=== PATIENT | female | born 1945 | race Caucasian/White ===

== ENCOUNTER 2019-03-10 12:07 | Outpatient (CLI) | payer MEDICARE, OTHER ==
--- NOTE | 2019-03-10 13:30 | RAD ---
2 VIEWS CHEST: Date: 03/10/19 COMPARISON: 05/15/18. HISTORY: Dyspnea. FINDINGS: 2 views of the chest show a normal sized cardiomediastinal silhouette with atherosclerotic calcificat ions in the aorta. There is no evidence of consolidation, mass, or pleural effusion. Degenerative victoria nges are seen in the spine. IMPRESSION: 1. No evidence of acute cardiopulmonary disease. 2. Atherosclerotic disease. POS: TPC
== END 2019-03-10 12:08 | disposition home or self-care (01) ==
LOC: RAD 12:07
PROVIDERS: ATTEND Internal Medicine Critical Care Medicine
DX: R06.00 Dyspnea, unspecified (principal); I70.0 Atherosclerosis of aorta
CPT/HCPCS: 71046

== ENCOUNTER 2020-07-04 20:57 | Inpatient (IN) | payer MEDICARE ==
[2020-07-04] MEDS ORDERED: Morphine 4 MG/ML VIAL ONE ×2 (21:35→22:38)
[2020-07-04] MEDS ORDERED: Ondansetron PF 4 MG/2 ML Vial ONE (21:35)
[2020-07-05] MEDS ORDERED: Dextrose 50% Abboject 50 ML SYRINGE SLOW IVP PRN (01:47)
[2020-07-05] MEDS ORDERED: Sodium Chloride 0.9% 1,000 ML IV SCH (01:47)
[2020-07-05] MEDS ORDERED: traMADol HCl 50 MG TAB PO PRN (01:47)
[2020-07-05] MEDS ORDERED: hydrALAZINE 20 MG/ML VIAL SLOW IVP PRN (01:47)
[2020-07-05] MEDS ORDERED: Morphine 2 MG/ML VIAL SLOW IVP PRN (01:47)
[2020-07-05] MEDS ORDERED: Ondansetron ODT 4 MG TAB PO PRN (01:47)
[2020-07-05] MEDS ORDERED: Dextrose 5% in Water 1,000 ML IV PRN (01:47)
[2020-07-05] MEDS ORDERED: Ondansetron PF 4 MG/2 ML Vial IVP PRN (01:47)
[2020-07-05 01:57] VITALS: BMI 38.0
[2020-07-05] MEDS: Ibuprofen 200 MG TAB PO SCH ×3 (02:33→18:18)
[2020-07-05] MEDS: Acetaminophen 325 MG TAB PO SCH ×4 (02:34→19:39)
[2020-07-05 05:42] LABS: #Basophils 0.1 thou/uL (0.0-0.2); #Eosinphils 0.2 thou/uL (0.0-0.7); #Lymphocytes 2.6 thou/uL (1.20-3.40); #Monocytes 1.6 thou/uL (0.11-0.59); #Neutrophils 8.4 thou/uL (1.40-6.50); %Basophils 0.7 % (0.0-1.0); %Eosinophils 1.8 % (0.0-10.0); %Lymphocytes 20.4 % (21.0-51.0); %Monocytes 12.6 % (0.0-10.0); %Neutrophils 64.6 % (42.0-75.0); Hemoglobin 13.2 g/dL (12.0-16.0); Mean Corpuscular HGB CONC 32.2 g/dL (32.0-36.0); Mean Corpuscular Hemoglobin 30.5 pg (27.0-31.0); Mean Corpuscular Volume 94.9 fL (78.0-98.0); Mean Platelet Volume 7.2 fL (7.4-10.4); Platelet Count 176 thou/uL (130-400); RBC Distribution Width 12.3 % (11.5-14.5); Red Blood Cell (RBC) Count 4.32 mill/uL (4.20-5.40); White Blood Cell (WBC) Count 12.9 thou/uL (4.8-10.8)
[2020-07-05 06:15] LABS: Anion Gap 14 mmol/L (10-20); BUN (Urea Nitrogen) 16 mg/dL (9.8-20.1); Calc. Creatinine Clearance 115 mL/min (70-130); Calcium 8.7 mg/dL (7.8-10.44); Carbon Dioxide 21 mmol/L (23-31); Chloride 101 mmol/L (98-107); Glucose 138 mg/dL (83-110); Magnesium 1.6 mg/dL (1.6-2.6); Phosphorus 3.8 mg/dL (2.3-4.7); Potassium 4.1 mmol/L (3.5-5.1); Sodium 132 mmol/L (136-145)
[2020-07-05] MEDS: cloNIDine 0.2 MG TAB PO PRN (07:13)
--- NOTE | 2020-07-05 07:38 | RAD ---
Left shoulder 3 views HISTORY: Fall. Injury. FINDINGS: Comminuted fracture of the anatomic neck of the humerus with one half shaft width anterior displacement of the shaft in relation to the head. Oblique intra-articular extension to the superior aspect of the head of the base of the greater tuberosity with distraction of fragments by 0. 3 cm. Mild inferior subluxation likely related to hemarthrosis. Acromioclavicular alignment maintained. IMPRESSION : Comminuted mildly displaced left humeral head/neck fracture.
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
[2020-07-05] MEDS ORDERED: CEFAZOLIN 2 GM in Premix Bag 1 BAG IVPB SCH (08:30)
[2020-07-05] MEDS: Famotidine 20 MG TAB PO SCH ×2 (09:35→19:39)
[2020-07-05] MEDS: Carvedilol 25 MG TAB PO SCH ×2 (09:35→19:39)
[2020-07-05 09:41] LABS: SARS-CoV-2 NAA Rapid Test Not Detected (NotDetected)
[2020-07-05] MEDS ORDERED: Ondansetron PF 4 MG/2 ML Vial ONE ×2 (10:19→16:32)
[2020-07-05] MEDS ORDERED: Ketorolac Tromethamine 30 MG/ML VIAL ONE (10:19)
[2020-07-05] MEDS ORDERED: Dexamethasone 20 MG/5 ML VIAL ONE (10:19)
[2020-07-05] MEDS ORDERED: Rocuronium Bromide 10 MG/ML (10ML VIAL) ONE (10:19)
[2020-07-05] MEDS ORDERED: Lidocaine 1% PF 5 ML VIAL ONE (10:19)
[2020-07-05] MEDS ORDERED: Glycopyrrolate 0.2 MG/ML 5 ML SYRINGE ONE (10:19)
[2020-07-05] MEDS ORDERED: PHENYLEPHRINE-NS 100 MCG/ML 10 ML SYRINGE ONE (10:19)
[2020-07-05] MEDS ORDERED: PROPOFOL 200 MG/20 ML VIAL ONE (10:19)
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
[2020-07-05] MEDS ORDERED: Fentanyl 100 MCG/2 ML VIAL ONE ×2 (12:14→16:10)
[2020-07-05] MEDS ORDERED: Sodium Chloride 0.9% 0 ML ONE (12:38)
[2020-07-05] MEDS ORDERED: Sodium Chloride 0.9% 10 ML ONE (12:38)
[2020-07-05] MEDS ORDERED: Bupivacaine PF 0.5% 30 ML VIAL ONE (15:04)
[2020-07-05] MEDS ORDERED: Lidocaine 2% w/Epinephrine 1:200K 20 ML VIAL ONE (15:04)
--- NOTE | 2020-07-05 15:24 | RAD ---
Left humerus 2 views intraoperative fluoroscopy HISTORY: Fracture. FINDINGS: Intraoperative fluoroscopy was provided for internal fixation as performed by Dr. Blanchard . Spot fluoroscopic images show compression sideplate and multiple screws transfixing the left humeral neck fracture. Alignment is anatomic.
[2020-07-05] MEDS ORDERED: HYDROmorphone 2 MG/ML VIAL SLOW IVP PRN (15:49)
[2020-07-05] MEDS ORDERED: Promethazine HCl 25 MG/ML VIAL SLOW IVP PRN (15:49)
[2020-07-05] MEDS ORDERED: Ondansetron HCl/PF 4 MG/2 ML Vial IVP PRN (15:49)
[2020-07-05] MEDS ORDERED: PACU-Morphine 4MG/ML VIAL SLOW IVP PRN (15:49)
[2020-07-05] MEDS ORDERED: Promethazine HCl 25 MG/ML VIAL IM PRN (15:49)
[2020-07-05] MEDS ORDERED: Labetalol HCl 100 MG/20 ML VIAL ONE (15:55)
[2020-07-05] MEDS ORDERED: Labetalol HCl 100 MG/20 ML VIAL SLOW IVP PRN (15:55)
[2020-07-05] MEDS ORDERED: HumaLOG 300 UNITS/3 ML VIAL SC PRN ×2 (17:30)
[2020-07-05] MEDS ORDERED: Insulin Regular 300 UNITS/3 ML VIAL SC PRN ×2 (17:40)
[2020-07-05] MEDS ORDERED: INSULN SC SCH (18:45)
[2020-07-05] MEDS ORDERED: INSULIN ASPART 100 UNIT/ML SC SCH (18:45)
--- NOTE | 2020-07-05 19:05 | OP ---
DATE OF PROCEDURE: 07/05/2020 PROCEDURE PERFORMED: Open reduction and internal fixation of left proximal humerus fracture. PREOPERATIVE DIAGNOSIS: Displaced left proximal humerus fracture. POSTOPERATIVE DIAGNOSIS: Displaced left proximal humerus fracture. COMPLICATIONS: None. ESTIMATED BLOOD LOSS: 50 mL. VACUUM DRUM DRIER OPERATOR: Holden Otero PA-C IMPLANTS: Synthes proximal humeral plate with multiple locking and nonlocking screws. INDICATIONS: Ms. White is a 74-year-old female, who has fallen and fractured her left proximal humerus. She has been indicated for open reduction and internal fixation of the humerus to restore anatomic alignment and promote healing. Risks have been reviewed in detail. She has elected to proceed with the operation. DESCRIPTION OF PROCEDURE: Ms. White was identified in the preoperative holding area. Her correct extremity was marked. She was carried to the operating room. She was positioned supine. General anesthesia was induced. A multidisciplinary time-out was performed. The left upper extremity was prepped and draped in sterile fashion. We began the procedure with deltopectoral approach to the humerus. We dissected down through the subcutaneous tissues to the fascia, which was opened. We exposed the cephalic vein. We then developed the deltopectoral interval bluntly. At this point, we were down onto the underlying tissues. We exposed the underlying fracture. We identified the biceps tendon and performed a biceps tenodesis using a Vicryl suture. We opened the rotator interval and evaluated the humeral head as well as the lesser and greater tuberosity fractures. The greater tuberosity was posteriorly displaced. We placed multiple traction sutures using FiberWire. These were then all passed through a plate. We brought the plate down on the lateral part of the bone. We took x-ray images confirming our hardware, reduction plate placement. We were satisfied with alignment. We then placed multiple screws distally and proximally in the bone. Once we filled all screw holes, again we checked x-ray images confirming there were no hardware prominence. We tied all of our sutures further securing the tuberosities. These were tied through the plate holes. After thorough irrigation, we closed in layers. A sterile dressing was applied. The patient was taken to the recovery room in good condition. The assistant coach surgeon was responsible for positioning the patient, preparing the injured extremity, applying the tourniquet, and assisting in preparation for surgery. The assistant coach was instrumental in reducing the injured limb by applying traction and reduction maneuvers as well as holding retractors and reduction tools. The assistant coach also was instrumental in assisting in exposure throughout the operation using appropriate retractors. The assistant coach participated in closure of the operative site as well as dressing application and splint application. Job ID: [id number]
[2020-07-05] MEDS: Cyclobenzaprine 10 MG TAB PO PRN (19:39)
[2020-07-05] MEDS: CEFAZOLIN 2 GM in Premix Bag 1 BAG IVPB SCH (19:45)
[2020-07-05] MEDS ORDERED: LANTUS SC SCH (21:00)
[2020-07-06] MEDS: Acetaminophen 325 MG TAB PO SCH ×3 (02:52→13:29)
[2020-07-06] MEDS: Ibuprofen 200 MG TAB PO SCH ×3 (02:52→16:46)
[2020-07-06] MEDS: traMADol HCl 50 MG TAB PO PRN ×2 (02:53→12:11)
[2020-07-06] MEDS: CEFAZOLIN 2 GM in Premix Bag 1 BAG IVPB SCH (02:56)
[2020-07-06 05:30] LABS: #Lymphocytes 1.3 thou/uL (1.20-3.40); #Monocytes 1.5 thou/uL (0.11-0.59); #Neutrophils 13.7 thou/uL (1.40-6.50); %Lymphocytes 8.1 % (21.0-51.0); %Monocytes 9.2 % (0.0-10.0); %Neutrophils 82.7 % (42.0-75.0); Hemoglobin 12.6 g/dL (12.0-16.0); Mean Corpuscular HGB CONC 33.7 g/dL (32.0-36.0); Mean Corpuscular Hemoglobin 31.8 pg (27.0-31.0); Mean Corpuscular Volume 94.4 fL (78.0-98.0); Mean Platelet Volume 7.3 fL (7.4-10.4); Platelet Count 179 thou/uL (130-400); Red Blood Cell (RBC) Count 3.97 mill/uL (4.20-5.40); White Blood Cell (WBC) Count 16.5 thou/uL (4.8-10.8)
[2020-07-06 05:56] LABS: Anion Gap 14 mmol/L (10-20); BUN (Urea Nitrogen) 17 mg/dL (9.8-20.1); Calc. Creatinine Clearance 101 mL/min (70-130); Calcium 8.9 mg/dL (7.8-10.44); Carbon Dioxide 24 mmol/L (23-31); Chloride 101 mmol/L (98-107); Glucose 214 mg/dL (83-110); Magnesium 1.7 mg/dL (1.6-2.6); Phosphorus 2.9 mg/dL (2.3-4.7); Potassium 4.1 mmol/L (3.5-5.1); Sodium 135 mmol/L (136-145)
[2020-07-06] MEDS: cloNIDine 0.2 MG TAB PO PRN (06:00)
[2020-07-06] MEDS: Cyclobenzaprine 10 MG TAB PO PRN (06:01)
--- NOTE | 2020-07-06 08:35 | PRG ---
DATE OF SERVICE: 07/06/2020 SUBJECTIVE: Kamla is a 74-year-old female, postop day 1 from an open reduction internal fixation of left proximal humerus and humeral neck. She is doing relatively well. She is sleeping comfortably. She awakens easily. OBJECTIVE: VITAL SIGNS: Temperature 98.5, pulse 83, respiratory rate 16 and nonlabored, blood pressure is 188/70. GENERAL: She is alert and oriented to person, place, time, situation. Responsive, appropriate with examiner. EXTREMITIES: She is neurovascularly intact in the left upper extremity with good full digital excursion and sensation. No strikethrough is noted at the incision site. LABORATORY DATA: Hemoglobin and hematocrit 12.6 and 37.5. IMPRESSION: A 74-year-old female, postop day 1, left proximal humerus fracture status post open reduction internal fixation. PLAN: Continue current care. Disposition per Trauma Team. Continue to follow. Job ID: [id number]
[2020-07-06] MEDS ORDERED: Senokot S 8.6-50 MG TAB PO SCH (09:00)
[2020-07-06] MEDS ORDERED: Furosemide 40 MG TAB PO SCH (09:00)
[2020-07-06] MEDS ORDERED: Polyethylene Glycol 3350 17 GM Packet PO SCH (09:00)
[2020-07-06] MEDS ORDERED: Losartan 25 MG TAB PO SCH (09:00)
[2020-07-06] MEDS ORDERED: cloNIDine 0.2 MG TAB PO SCH (09:00)
--- NOTE | 2020-07-06 09:25 | EKG ---
Test Reason : PREOP Blood Pressure : / mmHG Vent. Rate : 069 BPM Atrial Rate : 069 BPM P-R Int : 174 ms QRS Dur : 092 ms QT Int : 426 ms P-R-T Axes : 071 006 062 degrees QTc Int : 456 ms Normal sinus rhythm Normal ECG No previous ECGs available Confirmed by JONATHAN CALI ([id number]) on 07/06/2020 9:25:31 AM Referred By: WALDEMAR Confirmed By:JONATHAN CALI
[2020-07-06] MEDS: INSULN SC SCH ×3 (09:35→16:46)
[2020-07-06] MEDS: INSULIN ASPART 100 UNIT/ML SC SCH ×3 (09:35→16:46)
[2020-07-06] MEDS: Famotidine 20 MG TAB PO SCH (09:36)
[2020-07-06] MEDS: Carvedilol 25 MG TAB PO SCH (09:36)
[2020-07-06 13:13] VITALS: BP 122/74; TEMP 98.2
[2020-07-07] MEDS ORDERED: Metoprolol Tartrate 50 MG TAB PO SCH (09:00)
[2020-07-07] MEDS ORDERED: Hydrochlorothiazide 25 MG TAB PO SCH (09:00)
--- NOTE | 2020-07-07 13:17 | PQF ---
CLINICAL DOCUMENTATION CLARIFICATION FORM: Dear SANJUANITA Paige Date: 07.07.20 Please exercise your independent, professional judgment in responding to the clarification form. Clinical indicators are provided on the bottom of this form for your review. Please check appropriate box(es): [ ] Hyponatremia [ X ] Insignificant Lab Value [ ] Other diagnosis [ ] Unable to determine For continuity of documentation, please document condition throughout progress notes and discharge summary. Thank You. To be completed by CDI/Coding staff for physician review: CLINICAL INDICATORS - SIGNS / SYMPTOMS / LABS / RESULTS AND LOCATION IN EMR Labs: Sodium 1.20 132 1.21 135 RISK FACTORS / RESULTS AND LOCATION IN EMR 1. H&P ([place]): *s/p ground level fall w/ delayed presentation *Left proximal humerus fracture *PMH: DM type 2; CAD; HTN; Thyroid disease *Current Medications: Lasix; Metoprolol/HCTZ; TREATMENTS / RESULTS AND LOCATION IN EMR MAR: .20 NS 1.000ml @100 mls/hr IV CDS Signature: Little Kirkpatrick RN, CCDS Phone #: [phone] [email or web address] This is a permanent part of the Medical Record [facility]
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
== END 2020-07-06 17:05 | disposition home or self-care (01) | DRG 494 ==
LOC: ERS 20:57 → SURG A 21:55 → OBSVTOIN 07-05 01:47
PROVIDERS: ADMIT Surgery; ATTEND Surgery
PROC: 0PSD04Z Reposition Left Humeral Head with Internal Fixation Device, Open Approach (ICD-10-PCS; principal; 2020-07-05)
DX: S42.202A Unspecified fracture of upper end of left humerus, initial encounter for closed fracture (principal); E11.9 Type 2 diabetes mellitus without complications; K21.9 Gastro-esophageal reflux disease without esophagitis; I10 Essential (primary) hypertension; E78.00 Pure hypercholesterolemia, unspecified; E03.9 Hypothyroidism, unspecified; W01.0XXA Fall on same level from slipping, tripping and stumbling without subsequent striking against object, initial encounter; S80.212A Abrasion, left knee, initial encounter; I25.10 Atherosclerotic heart disease of native coronary artery without angina pectoris; F41.9 Anxiety disorder, unspecified; Z20.822 Contact with and (suspected) exposure to COVID-19; Z95.4 Presence of other heart-valve replacement; Z98.890 Other specified postprocedural states; Z90.710 Acquired absence of both cervix and uterus; Z88.8 Allergy status to other drugs, medicaments and biological substances; Z79.51 Long term (current) use of inhaled steroids; Z79.899 Other long term (current) drug therapy; Z79.84 Long term (current) use of oral hypoglycemic drugs; Z79.82 Long term (current) use of aspirin
CPT/HCPCS: 36415; 36416; 76000; 80048; 83735; 84100; 85025; 93005; 93010; 96374; 96375; 96376; C1713; G0378; J0690; J1100; J1885; J2270; J2405; J2704; J3010; S0020; U0002

== ENCOUNTER 2021-04-26 11:30 | Inpatient (IN) | payer MEDICARE, OTHER ==
[2021-04-26 13:29] LABS: Hemoglobin 13.2 g/dL (12.0-15.5); Mean Corpuscular HGB CONC 32.3 g/dL (32.0-36.0); Mean Corpuscular Hemoglobin 30.8 pg (27.0-33.0); Mean Corpuscular Volume 95.3 fl (81.6-98.3); Mean Platelet Volume 9.6 fl (7.4-10.4); Platelet Count 232 10x3/uL (150-450); RBC Distribution Width 13.6 % (11.5-14.5); Red Blood Cell (RBC) Count 4.29 10x6/uL (3.90-5.03); White Blood Cell (WBC) Count 8.6 10x3/uL (3.5-10.5)
[2021-04-27 11:54] LABS: SARS-CoV-2 PCR by NAA Not Detected (NotDetected)
[2021-05-01] MEDS ORDERED: Albumin 5% 500 ML ONE (06:28)
[2021-05-01] MEDS ORDERED: ceFAZolin Sodium (SDC) 2 GM/100 ML BAG ONE (06:29)
[2021-05-01] MEDS ORDERED: Fentanyl 250 MCG/5 ML VIAL ONE (06:53)
[2021-05-01] MEDS ORDERED: Midazolam HCl 5 mg/5 ml Vial ONE (06:53)
[2021-05-01] MEDS ORDERED: Dexmedetomidine 200 MCG/2 ML VIAL ONE (06:53)
[2021-05-01] MEDS ORDERED: Midazolam HCl 2 mg/2 ml Vial ONE (07:08)
[2021-05-01] MEDS ORDERED: Heparin 10,000 UNITS/1 ML VIAL 30,000 UNITS in Sodium Chloride 0.9% 1,000 ML FS SCH (07:30)
[2021-05-01] MEDS ORDERED: Potassium Chloride 60 MEQ/30 ML VIAL ONE (07:50)
[2021-05-01] MEDS ORDERED: Sodium Bicarb 50 MEQ/50 ML Abboject 8.4% SYRINGE ONE (07:50)
[2021-05-01] MEDS ORDERED: Heparin 5,000 UNITS/ML VIAL ONE (07:50)
[2021-05-01] MEDS ORDERED: PROPOFOL 200 MG/20 ML VIAL ONE (07:50)
[2021-05-01] MEDS ORDERED: Ondansetron PF 4 MG/2 ML Vial ONE (07:50)
[2021-05-01] MEDS ORDERED: Nitroglycerin 50 MG/250 ML BOT ONE (07:50)
[2021-05-01] MEDS ORDERED: Papaverine 60 MG/2 ML VIAL ONE (07:50)
[2021-05-01] MEDS ORDERED: Glycopyrrolate 0.2 MG/ML 5 ML SYRINGE ONE (07:50)
[2021-05-01] MEDS ORDERED: Thrombin 5000 UNITS/5 ML VIAL ONE (07:50)
[2021-05-01] MEDS ORDERED: Cardioplegic Soln 1,000 ML BAG ONE (07:50)
[2021-05-01] MEDS ORDERED: Norepinephrine 4 MG/4 ML VIAL ONE (07:50)
[2021-05-01] MEDS ORDERED: Mannitol 12.5 GM/50 ML ONE (07:50)
[2021-05-01] MEDS ORDERED: Calcium Chloride 1 GM/10 ML Abboject SYRINGE ONE (07:50)
[2021-05-01] MEDS ORDERED: Magnesium Sulfate 1 GM/2 ML VIAL ONE (07:50)
[2021-05-01] MEDS ORDERED: Heparin 30,000 units/30 ml VIAL ONE (07:50)
[2021-05-01] MEDS ORDERED: Aminocaproic Acid 5 GM/20 ML VIAL ONE (07:50)
[2021-05-01] MEDS ORDERED: Lidocaine 1% PF 5 ML VIAL ONE (07:50)
[2021-05-01] MEDS ORDERED: Vecuronium 10 MG VIAL ONE (07:50)
[2021-05-01] MEDS ORDERED: Lidocaine 2% PF 100 mg/5 ml Syringe ONE (07:50)
[2021-05-01] MEDS ORDERED: Dexamethasone 20 MG/5 ML VIAL ONE (07:50)
[2021-05-01] MEDS ORDERED: Protamine Sulfate 50 MG/5 ML VIAL ONE (07:50)
[2021-05-01] MEDS ORDERED: PHENYLEPHRINE-NS 100 MCG/ML 10 ML SYRINGE ONE (07:50)
[2021-05-01] MEDS ORDERED: Insulin Regular 300 UNITS/3 ML VIAL ONE (08:12)
[2021-05-01] MEDS ORDERED: Guaifenesin DM 100-10/5 ML UDCUP PO PRN (10:53)
[2021-05-01] MEDS ORDERED: Hetastarch 6% 500 ML 500 ML IVPB PRN (10:53)
[2021-05-01] MEDS ORDERED: Morphine 2 MG/ML VIAL SLOW IVP PRN (10:53)
[2021-05-01] MEDS ORDERED: Nitroglycerin 50 MG/250 ML BOT 250 ML IVPB PRN (10:53)
[2021-05-01] MEDS ORDERED: DOPamine 400 MG/D5W 250 ML 250 ML IVPB PRN (10:53)
[2021-05-01] MEDS ORDERED: hydrALAZINE 20 MG/ML VIAL SLOW IVP PRN (10:53)
[2021-05-01] MEDS ORDERED: Bisacodyl 10 MG SUPP PR PRN (10:53)
[2021-05-01] MEDS ORDERED: Post-Op Insulin Drip Protocol IVPB ONE (10:53)
[2021-05-01] MEDS ORDERED: niCARdipine 25 MG in Sodium Chloride 0.9% 250 ML 250 ML IVPB PRN (10:53)
[2021-05-01] MEDS ORDERED: Bisacodyl 5 MG TAB PO PRN (10:53)
[2021-05-01] MEDS ORDERED: Promethazine HCl 25 MG/ML VIAL IM PRN (10:53)
[2021-05-01] MEDS ORDERED: Fentanyl 100 MCG/2 ML VIAL SLOW IVP PRN (10:53)
[2021-05-01] MEDS ORDERED: Norepinephrine 8 MG/0.9% NS 250 ML IVPB PRN (10:53)
[2021-05-01] MEDS ORDERED: Mag-Al 1200 mg/1200 mg/30 ML UDCUP PO PRN (10:53)
[2021-05-01] MEDS ORDERED: Ondansetron PF 4 MG/2 ML Vial IVP PRN (10:53)
[2021-05-01] MEDS ORDERED: Potassium Chloride 20 MEQ/100 ML PREMIX BAG IVPB PRN (10:53)
[2021-05-01 11:20] LABS: #Basophils 0.1 thou/uL (0.0-0.2); #Eosinphils 0.2 thou/uL (0.0-0.7); #Lymphocytes 2.4 thou/uL (1.20-3.40); #Monocytes 0.8 thou/uL (0.11-0.59); #Neutrophils 11.2 thou/uL (1.40-6.50); %Basophils 0.5 % (0.0-1.0); %Eosinophils 1.3 % (0.0-10.0); %Lymphocytes 16.3 % (21.0-51.0); %Monocytes 5.7 % (0.0-10.0); %Neutrophils 76.1 % (42.0-75.0); Hemoglobin 11.6 g/dL (12.0-16.0); Mean Corpuscular Hemoglobin 33.1 pg (27.0-31.0); Mean Corpuscular Volume 97.3 fL (78.0-98.0); Mean Platelet Volume 6.6 fL (7.4-10.4); Platelet Count 132 thou/uL (130-400); RBC Distribution Width 12.3 % (11.5-14.5); White Blood Cell (WBC) Count 14.7 thou/uL (4.8-10.8)
[2021-05-01 11:28] VITALS: BMI 44.6
[2021-05-01] MEDS ORDERED: HUMULIN R 100 UNITS in Sodium Chloride 0.9% 100 ML IVPB SCH (11:30)
[2021-05-01] MEDS ORDERED: Dextrose 5% in Water 1,000 ML IV PRN ×2 (11:30→20:45)
[2021-05-01] MEDS ORDERED: Dextrose 50% Abboject 50 ML SYRINGE SLOW IVP PRN (11:30)
[2021-05-01 11:34] LABS: INR-International Normal Ratio 1.3; Prothrombin Time 16.5 sec (12.0-14.7)
[2021-05-01 11:51] LABS: Anion Gap 10 mmol/L (10-20); BUN (Urea Nitrogen) 17 mg/dL (9.8-20.1); Calc. Creatinine Clearance 146 mL/min (70-130); Calcium 8.2 mg/dL (7.8-10.44); Carbon Dioxide 24 mmol/L (23-31); Chloride 110 mmol/L (98-107); Glucose 167 mg/dL (83-110); Potassium 3.8 mmol/L (3.5-5.1); Sodium 140 mmol/L (136-145)
[2021-05-01] MEDS: Lactated Ringer's 1,000 ML IV SCH (11:57)
[2021-05-01] MEDS: Ketorolac Tromethamine 30 MG/ML VIAL IVP SCH ×3 (12:00→23:03)
[2021-05-01 16:20] LABS: Hemoglobin 12.2 g/dL (12.0-16.0)
[2021-05-01] MEDS: ceFAZolin Sodium/D5W 2 GM in Premix Bag 1 BAG IVPB SCH ×2 (16:39→23:45)
[2021-05-01 17:01] LABS: Potassium 4.1 mmol/L (3.5-5.1)
[2021-05-01] MEDS: Fentanyl 100 MCG/2 ML VIAL SLOW IVP PRN ×3 (18:18→23:45)
[2021-05-01] MEDS: Famotidine/PF 20 mg/2ml Vial SLOW IVP SCH (20:06)
[2021-05-01] MEDS ORDERED: Insulin Regular 300 UNITS/3 ML VIAL SC PRN (20:45)
[2021-05-01] MEDS ORDERED: Dextrose 50% Abboject 50 ML SYRINGE IVP PRN (20:45)
[2021-05-01] MEDS: HYDROcodone/Acetaminophen 5/325 mg Tablet PO PRN (21:56)
[2021-05-01] MEDS: niCARdipine 25 MG in Sodium Chloride 0.9% 250 ML 240 ML IVPB PRN (22:38)
[2021-05-01] MEDS: Insulin Regular 300 UNITS/3 ML VIAL SC PRN (23:46)
[2021-05-02] MEDS: niCARdipine 25 MG in Sodium Chloride 0.9% 250 ML 240 ML IVPB PRN (01:22)
[2021-05-02] MEDS: Fentanyl 100 MCG/2 ML VIAL SLOW IVP PRN ×2 (02:31→06:05)
[2021-05-02] MEDS: Lactated Ringer's 1,000 ML IV SCH (03:39)
[2021-05-02] MEDS ORDERED: niCARdipine 50 MG in Sodium Chloride 0.9% 250 ML 230 ML IV SCH (04:00)
[2021-05-02 04:40] LABS: #Lymphocytes 1.5 thou/uL (1.20-3.40); #Monocytes 1.5 thou/uL (0.11-0.59); #Neutrophils 14.1 thou/uL (1.40-6.50); %Basophils 0.2 % (0.0-1.0); %Eosinophils 0.3 % (0.0-10.0); %Lymphocytes 8.5 % (21.0-51.0); %Neutrophils 82.1 % (42.0-75.0); Hemoglobin 11.6 g/dL (12.0-16.0); Mean Corpuscular HGB CONC 34.2 g/dL (32.0-36.0); Mean Corpuscular Hemoglobin 33.4 pg (27.0-31.0); Mean Corpuscular Volume 97.7 fL (78.0-98.0); Mean Platelet Volume 7.2 fL (7.4-10.4); Platelet Count 175 thou/uL (130-400); RBC Distribution Width 12.5 % (11.5-14.5); Red Blood Cell (RBC) Count 3.49 mill/uL (4.20-5.40); White Blood Cell (WBC) Count 17.2 thou/uL (4.8-10.8)
[2021-05-02 04:50] LABS: Anion Gap 13 mmol/L (10-20); BUN (Urea Nitrogen) 19 mg/dL (9.8-20.1); Calc. Creatinine Clearance 129 mL/min (70-130); Calcium 8.2 mg/dL (7.8-10.44); Carbon Dioxide 22 mmol/L (23-31); Chloride 107 mmol/L (98-107); Glucose 171 mg/dL (83-110); Potassium 3.9 mmol/L (3.5-5.1); Sodium 138 mmol/L (136-145)
[2021-05-02] MEDS: Insulin Regular 300 UNITS/3 ML VIAL SC PRN ×4 (04:57→20:35)
[2021-05-02] MEDS: Ketorolac Tromethamine 30 MG/ML VIAL IVP SCH ×3 (04:57→18:15)
[2021-05-02] MEDS ORDERED: Nitroglycerin 0.4 MG TAB (25 Tab Bottle) SL PRN (08:26)
[2021-05-02] MEDS ORDERED: diphenhydrAMINE 25 MG CAP PO PRN (08:26)
[2021-05-02] MEDS ORDERED: Mineral Oil ENEMA PR PRN (08:26)
[2021-05-02] MEDS: Aspirin 325 MG TAB PO SCH (08:26)
[2021-05-02] MEDS: Famotidine/PF 20 mg/2ml Vial SLOW IVP SCH (08:26)
[2021-05-02] MEDS: Polyethylene Glycol 3350 17 GM Packet PO SCH (08:27)
[2021-05-02] MEDS: Carvedilol 3.125 MG TAB PO SCH ×2 (08:54→16:24)
[2021-05-02] MEDS: ceFAZolin Sodium/D5W 2 GM in Premix Bag 1 BAG IVPB SCH (08:55)
[2021-05-02] MEDS: cloNIDine 0.1 MG TAB PO SCH ×2 (08:55→20:15)
[2021-05-02] MEDS: Famotidine 20 MG TAB PO SCH ×2 (08:56→20:15)
[2021-05-02] MEDS: Losartan 25 MG TAB PO SCH (09:00)
[2021-05-02] MEDS: Icosapent Ethyl 1 GM CAPSULE PO SCH ×2 (10:04→18:15)
[2021-05-02] MEDS ORDERED: Dextrose 5% in Water 1,000 ML IV PRN (11:00)
[2021-05-02] MEDS ORDERED: Dextrose 50% Abboject 50 ML SYRINGE SLOW IVP PRN (11:00)
[2021-05-02] MEDS: HYDROcodone/Acetaminophen 5/325 mg Tablet PO PRN ×2 (13:38→22:10)
[2021-05-02] MEDS ORDERED: Lantus 1000 UNITS/10 ML VIAL SC SCH (21:00)
[2021-05-03] MEDS: Ketorolac Tromethamine 30 MG/ML VIAL IVP SCH ×5 (00:58→23:44)
[2021-05-03] MEDS: Zolpidem Tartrate 5 MG TAB PO PRN ×2 (00:59→20:06)
[2021-05-03] MEDS: Insulin Regular 300 UNITS/3 ML VIAL SC PRN ×4 (06:36→21:31)
[2021-05-03] MEDS: cloNIDine 0.2 MG TAB PO SCH ×2 (07:24→20:03)
[2021-05-03] MEDS: Aspirin 325 MG TAB PO SCH (08:30)
[2021-05-03] MEDS: Carvedilol 6.25 MG TAB PO SCH ×2 (08:30→16:18)
[2021-05-03] MEDS: Furosemide 40 MG TAB PO SCH (08:31)
[2021-05-03] MEDS: Losartan 25 MG TAB PO SCH (08:31)
[2021-05-03] MEDS: Famotidine 20 MG TAB PO SCH ×2 (08:31→20:05)
[2021-05-03] MEDS: Potassium Chloride 10 MEQ TAB PO SCH (08:31)
[2021-05-03] MEDS: Icosapent Ethyl 1 GM CAPSULE PO SCH ×2 (08:32→16:21)
[2021-05-03] MEDS: Polyethylene Glycol 3350 17 GM Packet PO SCH (08:33)
[2021-05-03] MEDS ORDERED: FLU VACC QS2021-22(65YR UP)/PF 240 MCG/0.7 ML SYRINGE IM ONE (09:00)
[2021-05-03] MEDS ORDERED: Lantus 1000 UNITS/10 ML VIAL SC SCH (09:00)
[2021-05-03] MEDS: HYDROcodone/Acetaminophen 5/325 mg Tablet PO PRN ×2 (12:41→20:04)
[2021-05-03 13:22] LABS: #Basophils 0.1 thou/uL (0.0-0.2); #Eosinphils 0.2 thou/uL (0.0-0.7); #Lymphocytes 2.9 thou/uL (1.20-3.40); #Monocytes 2.1 thou/uL (0.11-0.59); %Basophils 0.5 % (0.0-1.0); %Eosinophils 1.5 % (0.0-10.0); %Monocytes 13.4 % (0.0-10.0); %Neutrophils 65.6 % (42.0-75.0); Hemoglobin 11.4 g/dL (12.0-16.0); Mean Corpuscular HGB CONC 33.4 g/dL (32.0-36.0); Mean Corpuscular Hemoglobin 32.6 pg (27.0-31.0); Mean Corpuscular Volume 97.7 fL (78.0-98.0); Mean Platelet Volume 6.8 fL (7.4-10.4); Platelet Count 140 thou/uL (130-400); RBC Distribution Width 12.4 % (11.5-14.5); Red Blood Cell (RBC) Count 3.49 mill/uL (4.20-5.40); White Blood Cell (WBC) Count 15.3 thou/uL (4.8-10.8)
[2021-05-03 13:48] LABS: Anion Gap 13 mmol/L (10-20); BUN (Urea Nitrogen) 17 mg/dL (9.8-20.1); Calc. Creatinine Clearance 98 mL/min (70-130); Calcium 8.5 mg/dL (7.8-10.44); Carbon Dioxide 24 mmol/L (23-31); Chloride 101 mmol/L (98-107); Glucose 274 mg/dL (83-110); Potassium 4.5 mmol/L (3.5-5.1); Sodium 133 mmol/L (136-145)
[2021-05-03] MEDS: Lantus 1000 UNITS/10 ML VIAL SC SCH (21:30)
[2021-05-04] MEDS: Ketorolac Tromethamine 30 MG/ML VIAL IVP SCH ×2 (05:26→12:00)
[2021-05-04] MEDS: Carvedilol 6.25 MG TAB PO SCH ×3 (09:47→18:15)
[2021-05-04] MEDS: Potassium Chloride 10 MEQ TAB PO SCH (09:48)
[2021-05-04] MEDS: Icosapent Ethyl 1 GM CAPSULE PO SCH ×2 (09:48→18:15)
[2021-05-04] MEDS: Furosemide 40 MG TAB PO SCH (09:48)
[2021-05-04] MEDS: cloNIDine 0.2 MG TAB PO SCH ×2 (09:48→21:09)
[2021-05-04] MEDS: Lantus 1000 UNITS/10 ML VIAL SC SCH ×2 (09:48→21:10)
[2021-05-04] MEDS: Famotidine 20 MG TAB PO SCH ×2 (09:48→21:09)
[2021-05-04] MEDS: Polyethylene Glycol 3350 17 GM Packet PO SCH (09:48)
[2021-05-04] MEDS: Losartan 25 MG TAB PO SCH (09:48)
[2021-05-04] MEDS: Aspirin 325 MG TAB PO SCH (09:48)
[2021-05-04] MEDS: Insulin Regular 300 UNITS/3 ML VIAL SC PRN ×3 (12:00→21:15)
[2021-05-04] MEDS: Acetaminophen 325 MG TAB PO PRN (21:09)
[2021-05-05] MEDS: Icosapent Ethyl 1 GM CAPSULE PO SCH ×2 (08:49→17:08)
[2021-05-05] MEDS: Furosemide 40 MG TAB PO SCH (08:50)
[2021-05-05] MEDS: cloNIDine 0.2 MG TAB PO SCH ×2 (08:50→20:37)
[2021-05-05] MEDS: Lantus 1000 UNITS/10 ML VIAL SC SCH ×2 (08:50→20:37)
[2021-05-05] MEDS: Aspirin 325 MG TAB PO SCH (08:50)
[2021-05-05] MEDS: Famotidine 20 MG TAB PO SCH ×2 (08:51→20:36)
[2021-05-05] MEDS: Carvedilol 25 MG TAB PO SCH ×2 (08:51→17:08)
[2021-05-05] MEDS: Potassium Chloride 10 MEQ TAB PO SCH (08:52)
[2021-05-05] MEDS: Polyethylene Glycol 3350 17 GM Packet PO SCH (08:55)
[2021-05-05] MEDS: Acetaminophen 325 MG TAB PO PRN (09:08)
[2021-05-05] MEDS: Losartan 25 MG TAB PO SCH (09:25)
[2021-05-05] MEDS: Insulin Regular 300 UNITS/3 ML VIAL SC PRN ×3 (11:24→20:38)
[2021-05-05] MEDS: HYDROcodone/Acetaminophen 5/325 mg Tablet PO PRN (20:44)
[2021-05-06] MEDS: Zolpidem Tartrate 5 MG TAB PO PRN (01:39)
[2021-05-06] MEDS: Carvedilol 25 MG TAB PO SCH ×2 (06:26→19:29)
[2021-05-06] MEDS: Icosapent Ethyl 1 GM CAPSULE PO SCH ×2 (10:12→19:29)
[2021-05-06] MEDS: Polyethylene Glycol 3350 17 GM Packet PO SCH (10:12)
[2021-05-06] MEDS: Furosemide 40 MG TAB PO SCH (10:13)
[2021-05-06] MEDS: Aspirin 325 MG TAB PO SCH (10:13)
[2021-05-06] MEDS: Potassium Chloride 10 MEQ TAB PO SCH (10:13)
[2021-05-06] MEDS: Famotidine 20 MG TAB PO SCH (10:13)
[2021-05-06] MEDS: Losartan 25 MG TAB PO SCH (10:19)
[2021-05-06] MEDS: Lantus 1000 UNITS/10 ML VIAL SC SCH (10:19)
[2021-05-06] MEDS: cloNIDine 0.2 MG TAB PO SCH (10:22)
[2021-05-06 12:33] VITALS: TEMP 98.4
[2021-05-06 14:20] VITALS: BP 170/74
== END 2021-05-06 17:20 | disposition home or self-care (01) | DRG 236 ==
LOC: SURG A 05-01 05:57 → CCU 05-01 11:03 → 2NO 05-02 13:35
PROVIDERS: ADMIT Thoracic Surgery (Cardiothoracic Vascular Surgery); ATTEND Thoracic Surgery (Cardiothoracic Vascular Surgery)
PROC: 02100Z9 Bypass Coronary Artery, One Artery from Left Internal Mammary, Open Approach (ICD-10-PCS; principal; 2021-05-01)
PROC: 021009W Bypass Coronary Artery, One Artery from Aorta with Autologous Venous Tissue, Open Approach (ICD-10-PCS; 2021-05-01)
PROC: 06BQ0ZZ Excision of Left Saphenous Vein, Open Approach (ICD-10-PCS; 2021-05-01)
PROC: 06BP0ZZ Excision of Right Saphenous Vein, Open Approach (ICD-10-PCS; 2021-05-01)
PROC: 5A1221Z Performance of Cardiac Output, Continuous (ICD-10-PCS; 2021-05-01)
DX: I25.10 Atherosclerotic heart disease of native coronary artery without angina pectoris (principal); F32.A Depression, unspecified; Z20.822 Contact with and (suspected) exposure to COVID-19; I10 Essential (primary) hypertension; E78.5 Hyperlipidemia, unspecified; E11.9 Type 2 diabetes mellitus without complications; F41.9 Anxiety disorder, unspecified; K21.9 Gastro-esophageal reflux disease without esophagitis; Z79.82 Long term (current) use of aspirin; Z79.4 Long term (current) use of insulin; Z79.899 Other long term (current) drug therapy; Z95.2 Presence of prosthetic heart valve; Z90.710 Acquired absence of both cervix and uterus; Z88.2 Allergy status to sulfonamides; Z88.8 Allergy status to other drugs, medicaments and biological substances; Z87.891 Personal history of nicotine dependence
CPT/HCPCS: 36415; 36416; 36430; 71045; 80048; 82947; 85025; 85027; 85610; 85730; 86850; 86900; 86901; 93005; 93010; 93798; C1776; J0690; J1100; J1642; J1644; J1815; J1885; J2001; J2150; J2250; J2405; J2440; J2704; J2720; J3010; J3370; J3475; J3480; J3490; J7050; J7120; P9045; S0017; S0028; U0003; U0005

== ENCOUNTER 2021-04-26 11:42 | Outpatient (CLI) | payer MEDICARE, OTHER ==
[2021-04-26 13:53] LABS: Anion Gap 15 mmol/L (10-20); BUN (Urea Nitrogen) 25 mg/dL (9.8-20.1); Calc. Creatinine Clearance 0 mL/min (70-130); Calcium 9.4 mg/dL (7.8-10.44); Carbon Dioxide 25 mmol/L (23-31); Chloride 106 mmol/L (98-107); Glucose 192 mg/dL (83-110); Potassium 4.6 mmol/L (3.5-5.1); Sodium 141 mmol/L (136-145)
== END 2021-04-26 11:43 | disposition home or self-care (01) ==
LOC: LABBT 11:42
PROVIDERS: ATTEND Thoracic Surgery (Cardiothoracic Vascular Surgery)
DX: Z01.812 Encounter for preprocedural laboratory examination (principal); I25.10 Atherosclerotic heart disease of native coronary artery without angina pectoris; Z20.822 Contact with and (suspected) exposure to COVID-19
CPT/HCPCS: 80048; 85027; 86850; 86900; 86901; U0003; U0005